=== PATIENT | female | born 1990 | race Two or more races ===

== ENCOUNTER 2024-07-17 20:03 | Emergency (ER) | payer MEDICAID, SELFPAY ==
[2024-07-17 20:03] VITALS: BMI 30.8
--- NOTE | 2024-07-17 20:23 | XR_ITS ---
Examination: PA chest single view Technique: Upright PA chest single view Exam date and time: July 17, 2024 at 2032 hrs. Indications: Chest pain shortness of breath fever coughing sweats to the Findings: Prominent pneumonia right base laterally Normal heart size Left lung clear Impression: Prominent right base pneumonia
[2024-07-17 20:24] VITALS: BP 139/89; PULSE 100; RESP 20; TEMP 37.6; O2SAT 98
--- NOTE | 2024-07-17 20:50 | PD.EDURI ---
Upper Respiratory Inf. RME/HPI General Chief Complaint: Flu Like Symptoms Stated Complaint: COUGH Time Seen by Provider: 07/17/24 20:31 Arrival date/time: 07/17/24 20:03 33F with no significant PMH presents to ED with 2 weeks of cough and fevers/chills. Limitations: no limitations Related Data Previous Rx's ?Medication ?Instructions ?Recorded naproxen 500 mg tablet 500 mg PO BID PRN pain #30 tabs 11/28/22 amoxicillin 875 mg tablet 875 mg PO TID 5 days #15 tabs 07/17/24 azithromycin 250 mg tablet See Rx Instructions PO .COMPLEX #6 07/17/24 tabs Allergies Allergy/AdvReac Type Severity Reaction Status Date / Time No Known Allergies Allergy Verified 11/28/22 20:15 Review of Systems Review of Systems Systems Reviewed: All systems reviewed, normal except as documented Constitutional Constitutional: Reports system reviewed and no additional complaints, except as documented, Reports as per HPI, Reports chills, Reports fever(s) and Denies headache(s) ENT Ears, Nose, Mouth, and Throat: Denies disequilibrium and Denies headache(s) Cardiovascular Cardiovascular: Reports system reviewed and no additional complaints, except as documented, Denies chest pain and Denies dyspnea Respiratory Respiratory: Reports system reviewed and no additional complaints, except as documented, Reports as per HPI, Reports cough and Denies dyspnea Gastrointestinal Gastrointestinal: Reports system reviewed and no additional complaints, except as documented, Denies abdominal pain, Denies nausea and Denies vomiting Neurologic Neurologic: Reports system reviewed and no additional complaints, except as documented, Denies confusion, Denies disequilibrium and Denies headache(s) Psychiatric Psychiatric: Denies confusion Past Medical History Past Medical History CARDIAC: Negative Congestive Heart Failure RESPIRATORY: Negative Chronic Obstructive Pulmonary Disease (COPD) GENITOURINARY: Negative Renal Disease ENDOCRINE: Negative Diabetes Mellitus Type 1 or Diabetes Mellitus Type 2 Social History SMOKING STATUS: Current every day smoker ED Exam General Limitations: Present no limitations General appearance: Present alert and in no apparent distress Head Head exam: Present atraumatic Eye Eye exam: Present normal appearance, PERRL and EOMI ENT ENT exam: Present normal exam, normal oropharynx and mucous membranes moist Neck Neck exam: Present normal inspection, full ROM and trachea midline Chest Chest inspection: Present normal inspection and symmetric chest wall rise Respiratory Respiratory exam: Present normal lung sounds bilaterally Cardiovascular Cardiovascular exam: Present regular rate, normal rhythm and normal heart sounds Abdominal Exam Abdominal exam: Present soft and normal bowel sounds Extremities Exam Extremities exam: Present normal inspection and full ROM Back Exam Back exam: Present normal inspection and full ROM Neurological Exam Neurological exam: Present alert, oriented X3 and CN II-XII intact Psychiatric Psychiatric exam: Present normal affect and normal mood Skin Skin exam: Present warm, dry, intact and normal color Course Quality Measures none Orders Category Date Time Status Bedside Influenza A&B Antigen Test NOW Care 07/17/24 20:05 Completed XR chest 1V portable Stat Exams 07/17/24 20:23 Taken cefTRIAXone [Rocephin] 1,000 mg Med 07/17/24 20:38 Discontinued Lidocaine 1% 20 ml [Xylocaine 1% 20 ML] 2.1 ml IM X1 Vital Signs Vital signs: Vital Signs Temperature 99.6 F 07/17/24 20:24 Pulse Rate 100 07/17/24 20:24 Respiratory Rate 20 07/17/24 20:24 Blood Pressure 139/89 H 07/17/24 20:24 Pulse Oximetry (%) 98 07/17/24 20:24 Oxygen Delivery Method Room Air 07/17/24 20:24 O2 at 98% on RA and WNLs Upper Respiratory Infection MDM Narrative MDM Narrative:: 33F with no significant PMH presents to ED with 2 weeks of cough and fevers/chills. Physical exam reveals clear lungs. Normal WOB. Patient is afebrile, calm, and alert. Swabs neg. CXR prominent R lower PNA. Meds given. Patient data External records reviewed:: [facility] previous records Clinical information provided by:: patient Social determinants that could affect healthcare access:: none Patient has the following chronic illnesses:: none How is presenting disease/condition affected by chronic disease/condition?: no chronic disease Evaluation data The following diagnostics were reviewed and interpreted by me:: lab results and radiology exam(s) Lab and/or radiology exams considered but not ordered:: ordered Interpretation Summary: above Medications / Prescriptions Medications or Prescriptions considered but not ordered:: ordered Medication administrations:: Medication Administration History Discontinued Medications Ceftriaxone Sodium 1,000 mg/ (Lidocaine HCl 2.1 ml) 0 mg IM X1 ONE Stop: 07/17/24 20:39 above Consultations Consultation(s) initiated? (list below): No Diagnosis Upper Respiratory Differential Diagnosis: upper respiratory infection, croup, otitis media, sinusitis, viral infection, bronchitis, influenza, pharyngitis and other (CAP) Most likely diagnosis given after review of the tests above:: CAP Admission Indicated Admission indicated?: not indicated Admission Request Was there a request for admission?: No Disposition Plan Disposition Plan: Discharge Discharge Attestation Discharge Attestation: The patient and all family members were given an opportunity to ask questions and understood the discharge instructions. Discharge instructions specifically effects, indications for sooner follow up or return to the emergency department, and the expected course of current diagnosis. Patient condition: Stable Discharge Plan Plan Patient Disposition: HOME (Self Care) Disposition Comment: Stable Prescriptions/Referrals Prescriptions/Med Rec: New amoxicillin 875 mg tablet 875 mg PO TID 5 Days Qty: 15 0RF azithromycin 250 mg tablet See Rx Instructions .ROUTE .COMPLEX Qty: 6 0RF Rx Instructions: For 250 mg dose pack: take 500 mg today (day 1), then 250 mg for 4 days (days 2-5) No Action naproxen 500 mg tablet 500 mg PO BID PRN (Reason: pain) Qty: 30 0RF Problem List Clinical Impression: CAP (community acquired pneumonia) Patient/Caregiver Discharge Instructions Education Materials: ED Pneumonia (Adult) Additional Instructions: Please follow-up with PCP within 24-48 hours and return immediately if symptoms worsen. Ibuprofen/Tylenol can be used simultaneously for greater fever/pain control. Print Language: British Stand Alone Forms: Patient Portal Info Letter ALEJANDRO/SURAJ Supervising Physician ALEJANDRO/SURAJ Supervising Physician: Dr. Canales
[2024-07-17] MEDS: cefTRIAXone 1,000 MG, LIDOCAINE 1% 20 ML 2.1 ML IM (20:54)
== END 2024-07-17 21:14 | disposition home or self-care (01) ==
LOC: SERX 20:46
PROVIDERS: Emergency Provider Emergency Medicine
DX: J18.9 Pneumonia, unspecified organism (principal)
CPT/HCPCS: 71045; 87400; 99283; J0696; J3490